=== PATIENT | male | born 1960 | race Caucasian/White ===

== ENCOUNTER 2018-01-10 15:52 | Emergency (ER) | payer MEDICARE, MEDICAID ==
--- NOTE | 2018-01-10 16:23 | ED.PDOC ---
History of Present Illness - General Chief Complaint: Abdominal Pain Stated Complaint: abdominal pain Time Seen by Provider: 01/10/18 16:22 Information Source: patient Exam Limitations: no limitations - History of Present Illness Initial Comments: Sarkis Valdovinos 57 y/o male stated that he has sharp stabbing abdominal pain for the last 4 days and getting more intolerable today decided to call EMS. Abdominal Pain Onset Location: generalized abdomen Pain Radiation: no radiation Quality: sharpness, throbbing, waxing/waning Timing/Duration: other - 4 days Improving Factors: nothing Worsening Factors: eating Associated Symptoms: nausea/vomiting, other - unable to eat Review of Systems - Review of Systems Constitutional: States: no symptoms reported EENTM: States: no symptoms reported Respiratory: States: no symptoms reported Cardiology: States: no symptoms reported Gastrointestinal/Abdominal: States: see HPI Musculoskeletal: States: no symptoms reported Skin: States: no symptoms reported Neurological: States: no symptoms reported Endocrine: States: no symptoms reported All other Systems: Reviewed and Negative, No Change from Baseline Past Medical History (General) - Patient Medical History Hx Seizures: No Hx Stroke: No Hx Dementia: No Hx Asthma: No Hx of COPD: Yes Hx Cardiac Disorders: No Hx Congestive Heart Failure: No Hx Pacemaker: No Hx Hypertension: No Hx Thyroid Disease: No Hx Diabetes: Yes - not taking medications Hx Gastroesophageal Reflux: No Hx Renal Disease: No Hx Cancer: No Hx of HIV: No Hx Hepatitis C: No Hx MRSA: No MRSA Source:: Wound Surgical History: other - back-lumbar spine - Vaccination History Hx Tetanus, Diphtheria Vaccination: No Hx Influenza Vaccination: No Hx Pneumococcal Vaccination: No Immunizations Up to Date: No - Social History Hx Tobacco Use: Yes Hx Chewing Tobacco Use: No Hx Alcohol Use: Yes - Past Hx Substance Use: No Hx Substance Use Treatment: No Hx Depression: No Feels Threatened In Home Enviroment: No Feels Threatened In a Relationship: No Hx Physical Abuse: No Hx Emotional Abuse: No Hx Suspected Abuse: No - Activities of Daily Living Hospice Agency (if applicable):: None - Female History Patient is a Female of Child Bearing Age (10 -59 yrs old): No Patient : No Family Medical History - Family History Father Family History: Unknown Living Status: Unknown Physical Exam - Physical Exam General Appearance: Alert, Comfortable, No apparent distress Eyes, Ears, Nose, Throat Exam: normal ENT inspection, pharynx normal Neck: non-tender, full range of motion, normal inspection Respiratory: chest non-tender, lungs clear, normal breath sounds Cardiovascular/Chest: normal peripheral pulses, regular rate, rhythm, no murmur Peripheral Pulses: No deficit Gastrointestinal/Abdominal: normal bowel sounds, distended, tenderness, other - spider angiomas Extremity: non-tender, pedal edema Neurologic: no motor/sensory deficits, oriented x 3, other - somnolent Skin Exam: normal color, warm/dry Progress - Progress Progress: 01/10/18 18:55 Vital Signs - 8 hr 01/10/18 01/10/18 15:52 16:05 Temperature 97.6 F Pulse Rate [ 97 H 96 H Apical] Respiratory 22 Rate Blood Pressure 160/84 [Left Arm] O2 Sat by Pulse 94 L Oximetry - Results/Orders Results/Orders: 01/10/18 16:23 URINE DRUG SCREEN, 7 ASSAY Stat URINALYSIS Stat 01/10/18 16:30 EKG STAT 01/10/18 18:16 cefTRIAXone SODIUM [Rocephin] 2 gm Sodium Chl 0.9% 100Ml Mini-Bag [NS 100ml MINI-BAG+] 100 ml IVPB ONCE BLOOD CULTURE Stat 01/10/18 18:42 B-TYPE NATRIURETIC PEPTIDE/BNP Stat Laboratory Results - last 24 hr 01/10/18 01/10/18 01/10/18 16:23 16:29 16:56 WBC 15.5 H RBC 4.25 L Hgb 15.0 Hct 42.0 MCV 98.8 H MCH 35.2 H MCHC 35.7 RDW 15.6 H Plt Count 185 MPV 8.3 Absolute Neuts (auto) 14.00 H Absolute Lymphs (auto) 1.00 Absolute Monos (auto) 0.40 Absolute Eos (auto) 0.00 Absolute Basos (auto) 0.10 Neutrophils % 90.4 H Lymphocytes % 6.6 L Monocytes % 2.5 Eosinophils % 0.1 L Basophils % 0.4 PT 13.7 H INR 1.180 PTT (SP) 40.1 H Sodium 134 L Potassium 3.5 L Chloride 106 Carbon Dioxide 20 L Anion Gap 11.5 L BUN 15 Creatinine 0.83 BUN/Creatinine Ratio 18.1 Random Glucose 91 Serum Osmolality 268.7 L Lactic Acid 3.8 H* Calcium 8.0 L Magnesium 1.2 L Total Bilirubin 3.4 H* Direct Bilirubin 0.9 H Indirect Bilirubin 2.5 H AST 71 H ALT 46 Alkaline Phosphatase 82 Ammonia 60 H* Creatine Kinase 205 H* CK-MB (CK-2) 5.8 H* CK-MB (CK-2) % 2.83 Troponin I 0.01 Serum Total Protein 5.4 L Albumin 2.0 L - EKG/XRAY/CT EKG: Sinus, no ST T wave changes Comments: HR-98 CT Ordered: Yes - abd/p-liver cirrhosi,ascites,portal hypertension Departure - Departure Clinical Impression: Ascites due to alcoholic cirrhosis Abdominal pain Qualifiers: Abdominal location: generalized Qualified Code(s): R10.84 - Generalized abdominal pain Time of Disposition: 20:06 Disposition: Transfer to Hospital Departure Forms: ED Discharge - Pt. Copy, Patient Portal Self Enrollment Instructions: DI for Abdominal Pain-Adult Referrals: Natanael Isaacs MD [Primary Care Provider] - 1-2 Weeks Home Medications: Ambulatory Orders HYDROcodone 7.5MG/APAP 325MG [[place] 7.5/325] 1 ea PO .Q4H 08/01/15 Transfer to Outside Facility - Transfer Information Accepting Provider:: Dr. Park-Hospitalist Accepting Facility: [facility] Reason for Transfer: required specialist not available - home demonstrator
[2018-01-10] MEDS ORDERED: SODIUM CHLORIDE 0.9% 1000ML 1,000 ML ONE (16:43)
--- NOTE | 2018-01-10 17:04 | RAD ---
EXAM DESCRIPTION: Abdomen Series CLINICAL HISTORY: 57 years Male pain COMPARISON: None. TECHNIQUE: Single view chest and two-view abdomen FINDINGS: Cardiac size is within normal limits. There is a poor depth of inspiration with atelectasis in the lung bases. Abdomen is limited by body habitus. No obvious bowel obstruction or free air. Paucity of bowel gas. IMPRESSION: Limited examination without evidence of acute process in the abdomen. There is continued concern recommend CT Basilar atelectasis Electronically signed by: Ronit Pressley MD 01/10/2018 5:03 PM CDT
[2018-01-10] MEDS ORDERED: cefTRIAXone SODIUM 2 GM in SODIUM CHL 0.9% 100ML MINI-BAG 100 ML IVPB ONE (18:16)
[2018-01-10] MEDS ORDERED: SODIUM CHL 0.9% 100ML MINI-BAG 100 ML IVPB ONE (18:28)
--- NOTE | 2018-01-10 18:45 | CT ---
EXAM DESCRIPTION: Abdoment/Pelvis w/o Contrast CLINICAL HISTORY: 57 years Male distention /pain COMPARISON: None. TECHNIQUE: Contiguous axial images obtained through the abdomen and pelvis without IV contrast. Reformatted images obtained. This exam was performed according to our department optimization program which includes automated exposure control, adjustment of the mA and/or kv according to patient size and/or use of iterative reconstruction technique. FINDINGS: Basilar atelectatic changes. Small hiatal hernia. The liver is nodular consistent with changes from cirrhosis. There is an ill-defined area of low density in the superior liver measuring 5.2 cm in transverse diameter by 3.3 cm in AP diameter by approximately 3.2 cm in height. The possibility of hepatocellular carcinoma is not excluded and MRI is recommended to better evaluate. There are varices visualized in the upper abdomen and around the esophagus. The spleen is mildly prominent measuring 13.5 cm. The pancreas appears unremarkable. No adrenal masses. 1 cm hemorrhagic left renal cyst. Questionable tiny nonobstructing left renal calculus. No hydronephrosis. The gallbladder is visualized. Mild atherosclerotic calcifications. No aneurysmal dilatation of the aorta. No bowel obstruction. The appendix is not definitely visualized. There is wall thickening in the colon most pronounced in the ascending colon. This may be from hypoproteinemia. Clinical correlation recommended to exclude changes from infectious or inflammatory colitis. Large amount of fluid in the abdomen and pelvis. There is stranding throughout the mesentery likely from hypoproteinemia and ascites. There is a left inguinal hernia which contains ascitic fluid. There are prominent lymph nodes in the groin regions versus enlarged veins. Clinical correlation is recommended. Degenerative changes in the spine. IMPRESSION: Changes consistent with cirrhosis and portal hypertension. There is a large amount of ascites in the abdomen and pelvis. Ill-defined area of low density within the liver which could be from hepatocellular carcinoma. MRI is recommended to better evaluate. Wall thickening in the colon which could be from hypoproteinemia. Clinical correlation recommended to exclude the possibility of infectious or inflammatory colitis. Stranding throughout the mesentery likely from hypoproteinemia and ascitic fluid. Prominent lymph nodes or enlarged veins in the groin regions for which clinical correlation is recommended. Electronically signed by: Forest Pressley MD 01/10/2018 6:43 PM CDT
[2018-01-10 19:25] VITALS: TEMP 99.5
[2018-01-10] MEDS ORDERED: MAGNESIUM SULFATE PREMIX 2GM 2 GM in PREMIX BAG 1 BAG IVPB ONE (19:28)
[2018-01-10] MEDS ORDERED: MAGNESIUM SULFATE PREMIX 2GM 50 ML IVPB ONE (19:37)
[2018-01-10 21:38] VITALS: BP 139/75; O2SAT 94
== END 2018-01-10 20:50 | disposition short-term general hospital (02) ==
LOC: ER 15:52
DX: K70.31 Alcoholic cirrhosis of liver with ascites (principal); R11.2 Nausea with vomiting, unspecified; J44.9 Chronic obstructive pulmonary disease, unspecified; E11.9 Type 2 diabetes mellitus without complications; Z87.891 Personal history of nicotine dependence
CPT/HCPCS: 36415; 36416; 74019; 74176; 80048; 80076; 82140; 82550; 82553; 83605; 83880; 84484; 85025; 85610; 85730; 87040; 93005; J0696; J3475; J7030; J7050